=== PATIENT | female | born 1960 | race Caucasian/White ===

== ENCOUNTER 2022-10-03 10:51 | Emergency (ER) | payer MEDICAID ==
[~2022-10-03] VITALS: Ht 160 cm; Wt 96.2 kg
[2022-10-03 11:05] VITALS: BP_SYST 152
[2022-10-03] MEDS ORDERED: ALBMDI INH (12:15)
[2022-10-03] MEDS ORDERED: PSEU30TA36 PO (12:15)
[2022-10-03 12:42] VITALS: BP_SYST 152
== END 2022-10-03 12:41 | disposition home or self-care (01) ==
LOC: SED 10:51
DX: J40 Bronchitis, not specified as acute or chronic (principal); R05.9 Cough, unspecified; R09.81 Nasal congestion; Z88.0 Allergy status to penicillin; Z79.899 Other long term (current) drug therapy; Z20.822 Contact with and (suspected) exposure to COVID-19
CPT/HCPCS: 36415; 71045; 99284

== ENCOUNTER 2023-01-19 14:43 | Emergency (ER) | payer MEDICAID ==
[~2023-01-19] VITALS: Ht 162.6 cm; Wt 102.1 kg
[~2023-01-19 14:43] MED LIST: ALBMDI INH; PSEU30TA36 PO
[2023-01-19 15:01] VITALS: PULSE 67; RESP 18; TEMP 98.3; O2SAT 98
[2023-01-19 15:35] VITALS: BP_SYST 126; PULSE 67; RESP 18; TEMP 98.3; O2SAT 98
[2023-01-19] MEDS ORDERED: VANCOMYCIN HCL 1,000 MG in NS 250 ML IV ONE (17:30)
[2023-01-19] MEDS ORDERED: VANCOMYCIN HCL 1000 MG/VIAL IV ONE (17:39)
[2023-01-19] MEDS ORDERED: CHLO118L TP (19:05)
[2023-01-19] MEDS ORDERED: NAPR-1172 PO (19:05)
[2023-01-19] MEDS ORDERED: SULF1TAB48 PO (19:05)
== END 2023-01-19 19:00 | disposition home or self-care (01) ==
LOC: SED 14:43
DX: L02.211 Cutaneous abscess of abdominal wall (principal); Z88.0 Allergy status to penicillin; Z91.013 Allergy to seafood; Z79.899 Other long term (current) drug therapy
CPT/HCPCS: 99284; 96365; 10060; 87040; 36415; J3370